=== PATIENT | female | born 1945 ===

== ENCOUNTER 2024-02-01 10:28 | Outpatient (CLI) | payer OTHER | END 2024-02-01 10:30 | disposition home or self-care (01) | LOC: SONOGRAMA 10:28 | PROVIDERS: ATTEND Pathology Anatomic Pathology & Clinical Pathology | DX: E04.2 Nontoxic multinodular goiter (principal); D44.0 Neoplasm of uncertain behavior of thyroid gland; E06.3 Autoimmune thyroiditis ==